=== PATIENT | male | born 1995 | race Caucasian/White ===

== ENCOUNTER 2021-02-21 19:20 | Inpatient (IN) | payer OTHER ==
[~2021-02-21] VITALS: Ht 160 cm; Wt 86.0 kg
[2021-02-21] MEDS ORDERED: KETOROLAC 30MG/ML VIAL IV STA (20:19)
[2021-02-21] MEDS ORDERED: PIPERACILLIN/TAZ 3.375G PREMIX 50 ML IV ONE ×2 (20:30→23:45)
[2021-02-21] MEDS ORDERED: VANCOMYCIN 1 G PREMIX 200 ML IV ONE (20:30)
[2021-02-21] MEDS ORDERED: SODIUM CHLORIDE 0.9% 1,000 ML IV ONE (20:30)
[2021-02-21] MEDS ORDERED: TETANUS, DIPHTHERIA, PERTUSSIS VAC/PF 0.5ML (>7YR OLD) IM ONE (20:30)
[2021-02-21] MEDS ORDERED: LIDOCAINE HCL/EPINEPHRINE 1%-EPI 1:100,000 20 ML VIAL INFIL ONE (20:30)
[2021-02-21] MEDS ORDERED: CLINDAMYCIN 600 MG in DEXTROSE 5% WATER 50 ML IV ONE (20:45)
[2021-02-21 20:59] LABS: BASOPHILS % 0.4 % (0.0-2.0); EOSINOPHILS % 2.1 % (0.0-5.0); HEMATOCRIT. 37.6 % (42.0-52.0); HEMOGLOBIN. 12.8 g/dL (14.0-18.0); LYMPHOCYTES % 30.6 % (20.0-50.0); MEAN CORPUSCULAR VOLUME 85.4 fL (80.0-94.0); MEAN PLATELET VOLUME 8.5 fl (7.4-10.4); MONOCYTES % 7.2 % (2.0-8.0); NEUTROPHILS % 59.7 % (40.0-76.0); PLATELET 305 x1000/uL (130-400); RED CELL DISTRIBUTION WIDTH 12.4 % (11.6-14.6)
[2021-02-21 21:10] LABS: CHLORIDE 106 mEq/L (98-107)
[2021-02-21] MEDS ORDERED: CLINDAMYCIN 600MG PREMIX 50 ML IV NR (22:00)
[2021-02-21] MEDS ORDERED: DIPHENHYDRAMINE 50MG/ML VIAL IV ONE (23:00)
[2021-02-21] MEDS ORDERED: MORPHINE SULFATE 4 MG/ML CPJ (NOT FOR IM USE) IV STA (23:18)
[2021-02-21] MEDS ORDERED: ONDANSETRON HCL 4MG/2ML INJ IV STA (23:18)
[2021-02-22] MEDS ORDERED: NALOXONE HCL 0.4MG/ML VIAL IV PRN (07:00)
[2021-02-22] MEDS ORDERED: MORPHINE SULFATE 2 MG/ML CPJ (NOT FOR IM USE) IV PRN (07:00)
[2021-02-22 09:15] LABS: BASOPHILS % 0.4 % (0.0-2.0); EOSINOPHILS % 0.8 % (0.0-5.0); HEMATOCRIT. 38.4 % (42.0-52.0); LYMPHOCYTES % 15.6 % (20.0-50.0); MEAN CORPUSCULAR HEMOGLOBIN 28.7 pg (28.0-32.0); MEAN CORPUSCULAR VOLUME 84.9 fL (80.0-94.0); MEAN PLATELET VOLUME 8.3 fl (7.4-10.4); MONOCYTES % 8.6 % (2.0-8.0); NEUTROPHILS % 74.6 % (40.0-76.0); PLATELET 310 x1000/uL (130-400); RED BLOOD CELL COUNT 4.53 mill/uL (4.7-6.1); RED CELL DISTRIBUTION WIDTH 12.4 % (11.6-14.6)
[2021-02-22] MEDS ORDERED: ACETAMINOPHEN 325MG TABLET PO PRN (10:00)
[2021-02-22] MEDS ORDERED: KETOROLAC 30MG/ML VIAL IV PRN (10:00)
[2021-02-22] MEDS ORDERED: CLINDAMYCIN 600MG PREMIX 50 ML IV SCH (10:00)
[2021-02-22] MEDS ORDERED: CLINDAMYCIN 600 MG in DEXTROSE 5% WATER 50 ML IV SCH (10:00)
[2021-02-22] MEDS ORDERED: ONDANSETRON HCL 4MG/2ML INJ IV PRN (10:00)
[2021-02-22 13:27] VITALS: BP 133/85
== END 2021-02-22 13:37 | disposition left against medical advice (07) | DRG 383 ==
LOC: ER 19:20 → MICUSO 02-22 01:04 → EDBEDREQTM 02-22 01:08 → EDBEDREQ 02-22 01:08 → 8WST 02-22 14:04
PROVIDERS: ADMIT Internal Medicine; ATTEND Internal Medicine
PROC: 0X9D0ZZ Drainage of Right Lower Arm, Open Approach (ICD-10-PCS; principal; 2021-02-22)
DX: L03.113 Cellulitis of right upper limb (principal); D64.9 Anemia, unspecified; E78.00 Pure hypercholesterolemia, unspecified; F17.210 Nicotine dependence, cigarettes, uncomplicated; I10 Essential (primary) hypertension; Z20.822 Contact with and (suspected) exposure to COVID-19; L02.413 Cutaneous abscess of right upper limb; Z90.49 Acquired absence of other specified parts of digestive tract; E66.9 Obesity, unspecified; E78.5 Hyperlipidemia, unspecified
CPT/HCPCS: 36415; 73090; 73200; 73220; 80053; 85025; 86140; 87426; 90715; 99291; J1200; J1885; J2270; J2405; J2543; J3370; J3490; J7030; J7060

== ENCOUNTER 2021-04-30 15:51 | Emergency (ER) | payer MEDICAID, OTHER ==
[~2021-04-30] VITALS: Ht 157.5 cm; Wt 82.0 kg
[2021-04-30] MEDS ORDERED: CLINDAMYCIN HCL 150MG CAPSULE PO ONE (17:30)
[2021-04-30] MEDS ORDERED: BACITRACIN 15GM TUBE TOP ONE (17:30)
[2021-04-30] MEDS ORDERED: CLIN-116 MT (19:38)
[2021-04-30 20:05] VITALS: BP 125/84
== END 2021-04-30 20:12 | disposition home or self-care (01) ==
LOC: ER 15:51
DX: L03.116 Cellulitis of left lower limb (principal); L03.115 Cellulitis of right lower limb; I10 Essential (primary) hypertension; Z90.49 Acquired absence of other specified parts of digestive tract
CPT/HCPCS: 73630; 99283; A4217

== ENCOUNTER 2021-09-27 10:18 | Emergency (ER) | payer MEDICAID, OTHER ==
[~2021-09-27] VITALS: Ht 160 cm; Wt 82.0 kg
[~2021-09-27 10:18] MED LIST: CLIN-116 MT
[2021-09-27 10:25] VITALS: BP 138/87
[2021-09-27] MEDS ORDERED: IBUPROFEN 800MG TABLET PO ONE (10:45)
[2021-09-27] MEDS ORDERED: IBUP-2029 MT (11:15)
== END 2021-09-27 11:34 | disposition home or self-care (01) ==
LOC: ER 10:18
DX: S93.691A Other sprain of right foot, initial encounter (principal); I10 Essential (primary) hypertension; V00.131A Fall from skateboard, initial encounter; Y93.89 Activity, other specified; Y92.9 Unspecified place or not applicable; Z98.890 Other specified postprocedural states
CPT/HCPCS: 73630; 99283